=== PATIENT | female | born 1935 | race Caucasian/White ===

== ENCOUNTER 2017-01-26 09:15 | Observation (INO) | payer MEDICARE ==
[2017-01-26] VITALS (8 sets, daily range): BP systolic 116–159; BP diastolic 56–88; PULSE 65–84; RESP 16–20; TEMP 97.8–98.5; O2SAT 95–99
[~2017-01-26] VITALS: Ht 149.9 cm; Wt 48.1 kg
[~2017-01-26 09:15] MED LIST: ADVA250A INH; ALPR-138 PO; AMLO5TAB96 PO; ASPI81 PO; ATOR20TA42 PO; CALC-197 PO; DIGO0.25 PO; FLON0.053; HYDR-2768 PO; HYDR10TA23 PO; K-TA10TA5 PO; LORA10TA7 PO; OMEGCAP2 PO; VENTAER INH
[2017-01-26] MEDS ORDERED: SODIUM CHLORIDE 0.9% FLUSH 10 ML FLUSH IVF PRN (09:30)
--- NOTE | 2017-01-26 09:41 | RADRPT ---
EXAM DATE/TIME: 01/26/2017 09:25 [place] COMPARISON: Report only CHEST SINGLE AP, January 22, 2012, 7:14. INDICATIONS : Chest pain MEDICAL HISTORY : A-fib SURGICAL HISTORY : None. ENCOUNTER: Initial ACUITY: 1 day PAIN SCORE: 4/10 LOCATION: Bilateral chest FINDINGS: No infiltrate, effusion or pneumothorax demonstrated. There is mild cardiomegaly, was reported previo usly. Thoracic aorta is mildly tortuous and there is atherosclerosis at the arch. CONCLUSION: No pneumonia or other acute cardiopulmonary disease demonstrated. Mild compensated cardiomegaly. Andre Pelayo MD on January 26, 2017 at 9:38 Board Certified Radiologist. This report was verified electronically.
[2017-01-26] MEDS ORDERED: DIGO0.25 PO (09:48)
[2017-01-26] MEDS ORDERED: HYDR25TA5 PO ×2 (09:48)
[2017-01-26] MEDS ORDERED: CALC600T10 PO (09:48)
[2017-01-26] MEDS ORDERED: AMLO5TAB2 PO (09:48)
[2017-01-26] MEDS ORDERED: ASPI-110 PO (09:48)
[2017-01-26] MEDS ORDERED: ATOR20TA15 PO (09:48)
[2017-01-26] MEDS ORDERED: POTA20TA5 PO (09:48)
[2017-01-26] MEDS ORDERED: ADVA250A INH (09:48)
[2017-01-26] MEDS ORDERED: LORA10TA PO (09:48)
[2017-01-26] MEDS ORDERED: VENTAER INH (09:48)
--- NOTE | 2017-01-26 10:22 | PD ---
HPI Chief Complaint: Cardiac Complaint Time Seen by Provider: 09:25 Travel History International Travel<30 days: No Contact w/Intl Traveler<30days: No Traveled to known affect area: No History of Present Illness HPI 81-year-old female presents with [facility] transportation for atrial fibrillation with heart rate in the 160s by report. She was given 20 mg of Cardizem IV and her heart rate has now improved. She states when her heart rate was elevated she had chest pain but that has now resolved. 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 She states she took a baby aspirin prior to arrival. She denies any other concurrent complaints. She has known history of atrial fibrillation she states and took her medication at home like she should. Patient is a poor historian [facility] Past Medical History Narrative Medical Per records Arthritis: Yes Asthma: Yes Heart Rhythm Problems: Yes Cancer: No Cardiac Catheterization: No Cardiovascular Problems: Yes (A-FIB ) High Cholesterol: Yes Congestive Heart Failure: No Diabetes: No Diminished Hearing: No Hepatitis: No Hiatal Hernia: No Hypertension: Yes Respiratory: Yes (ASTHMA) Myocardial Infarction: No Pneumonia: Yes Thyroid Disease: No Tetanus Vaccination: > 5 Years Influenza Vaccination: Yes Past Surgical History Narrative Surgical Per records Coronary Artery Bypass Graft: No Gynecologic Surgery: Yes (SURGERY FOR TUBAL ) Hysterectomy: Yes Oral Surgery: Yes (cataract alona ) Pacemaker: No Other Surgery: Yes Family History Family Myocardial Infarction: Yes (MOTHER AND 2 BROTHERS AND SON) Social History Alcohol Use: No Tobacco Use: No Substance Use: No Allergies-Medications (Allergen,Severity, Reaction): Coded Allergies: Lisinopril (Verified Allergy, Severe, Anaphylaxis, 01/26/17) Codeine (Verified Allergy, Mild, NAUSEA, 01/26/17) Reported Meds & Prescriptions Reported Meds & Active Scripts Active Reported Digoxin 0.125 Mg Tab 0.125 Mg PO DAILY Calcium + D3 (Calcium Carbonate-Cholecalciferol) 600-200 Mg-Unit Tab 1 Tab PO BID Advair Diskus Inh (Fluticasone-Salmeterol Inh) 250-50 Mcg/Blist Aer 1 Puff INH BID Rinse mouth after use. Potassium Chloride Microencaps 20 Meq Tab 20 Meq PO DAILY Loratadine 10 Mg Tab 10 Mg PO DAILY Hydrochlorothiazide 25 Mg Tab 25 Mg PO DAILY Amlodipine (Amlodipine Besylate) 5 Mg Tab 5 Mg PO DAILY Atorvastatin (Atorvastatin Calcium) 20 Mg Tab 20 Mg PO HS Ventolin Hfa 18 GM Inh (Albuterol Sulfate) 90 Mcg/Act Aer 1 Puff INH Q4H PRN Aspirin 81 (Aspirin) 81 Mg Tabdr 81 Mg PO DAILY Review of Systems Except as stated in HPI: all other systems reviewed are Neg Physical Exam Narrative GENERAL: Well-nourished, well-developed patient. Well-appearing SKIN: Warm and dry. HEAD: Normocephalic and atraumatic. EYES: No injection or drainage. ENT: No nasal drainage noted. NECK: Supple, trachea midline. CARDIOVASCULAR: irregular rate and rhythm RESPIRATORY: Breath sounds equal bilaterally. No accessory muscle use. GASTROINTESTINAL: Abdomen soft, non-tender, nondistended. NEUROLOGICAL: Awake and alert. Moves all extremities. Normal speech. Data Data Last Documented VS Vital Signs Date Time Temp Pulse Resp B/P Pulse Ox O2 Delivery O2 Flow Rate FiO2 01/26/17 11:15 76 16 138/69 97 Room Air 01/26/17 09:15 98.5 Orders Electrocardiogram (01/26/17 09:28) B-Type Natriuretic Peptide (01/26/17 09:28) Ckmb (Isoenzyme) Profile (01/26/17 09:28) Complete Blood Count With Diff (01/26/17 09:28) Comprehensive Metabolic Panel (01/26/17 09:28) Magnesium (Mg) (01/26/17 09:28) Prothrombin Time / Inr (Pt) (01/26/17 09:28) Act Partial Throm Time (Ptt) (01/26/17 09:28) Troponin I (01/26/17 09:28) Chest, Single Ap (01/26/17 09:28) Ecg Monitoring (01/26/17 09:28) Bilateral Bp Monitoring (01/26/17 09:28) Iv Access Insert/Monitor (01/26/17 09:28) Oximetry (01/26/17 09:28) Sodium Chloride 0.9% Flush (Ns Flush) (01/26/17 09:30) Aspirin (Aspirin) (01/26/17 10:30) Digoxin (01/26/17 11:04) Consult Cardiology (01/26/17 ) Admit Order (Ed Use Only) (01/26/17 11:58) Labs Laboratory Tests Test 01/26/17 09:35 White Blood Count 5.5 TH/MM3 Red Blood Count 5.27 MIL/MM3 Hemoglobin 15.3 GM/DL Hematocrit 45.8 % Mean Corpuscular Volume 86.8 FL Mean Corpuscular Hemoglobin 29.1 PG Mean Corpuscular Hemoglobin 33.5 % Concent Red Cell Distribution Width 13.3 % Platelet Count 169 TH/MM3 Mean Platelet Volume 9.5 FL Neutrophils (%) (Auto) 77.5 % Lymphocytes (%) (Auto) 16.4 % Monocytes (%) (Auto) 5.0 % Eosinophils (%) (Auto) 0.5 % Basophils (%) (Auto) 0.6 % Neutrophils # (Auto) 4.2 TH/MM3 Lymphocytes # (Auto) 0.9 TH/MM3 Monocytes # (Auto) 0.3 TH/MM3 Eosinophils # (Auto) 0.0 TH/MM3 Basophils # (Auto) 0.0 TH/MM3 CBC Comment DIFF FINAL Differential Comment Prothrombin Time 11.3 SEC Prothromb Time International 1.0 RATIO Ratio Activated Partial 25.0 SEC Thromboplast Time Sodium Level 141 MEQ/L Potassium Level 4.2 MEQ/L Chloride Level 105 MEQ/L Carbon Dioxide Level 23.6 MEQ/L Anion Gap 12 MEQ/L Blood Urea Nitrogen 13 MG/DL Creatinine 1.07 MG/DL Estimat Glomerular Filtration 49 ML/MIN Rate Random Glucose 157 MG/DL Calcium Level 9.1 MG/DL Magnesium Level 2.2 MG/DL Total Bilirubin 1.1 MG/DL Aspartate Amino Transf 36 U/L (AST/SGOT) Alanine Aminotransferase 31 U/L (ALT/SGPT) Alkaline Phosphatase 106 U/L Total Creatine Kinase 65 U/L Troponin I 0.03 NG/ML B-Type Natriuretic Peptide 225 PG/ML Total Protein 7.8 GM/DL Albumin 4.0 GM/DL Digoxin Level 0.1 NG/ML MDM Medical Decision Making Medical Screen Exam Complete: Yes Emergency Medical Condition: Yes Medical Record Reviewed: Yes (past history confirm) Interpretation(s) EKG appears irregular but there is a P before each QRS complex in lead 2 that has more appearance of sinus rhythm with PACs no obvious STEMI criteria CBC & BMP Diagram 01/26/17 09:35 Last 24 hours Impressions Chest X-Ray 01/26/17 0928 Signed Impressions: Service Date/Time: January 09:25 - CONCLUSION: No pneumonia or other acute cardiopulmonary disease demonstrated. Mild compensated cardiomegaly. Andre Pelayo MD Differential Diagnosis Atrial fibrillation with RVR, a flutter, SVT with aberrancy, CA.... Narrative Course Will check blood work, chest x-ray, EKG and monitor. Heart rate now controlled if it increases Will place on Cardizem drip Patient now in sinus rhythm. Pain has resolved after rate control. We'll discuss with cardiology Patient agrees to admission Physician Communication Physician Communication dr alas states to place in observation and will see dr ness agrees to observation Diagnosis Primary Impression: Chest pain Qualified Code: R07.9 - Chest pain, unspecified type Additional Impression: Tachycardia Admitting Information Admitting Physician Requests: Observation Hallie Molina MD January 26, 2017 10:22
[2017-01-26 10:23] LABS: AUTOMATED NEUTROPHIL # 4.2 TH/MM3 (1.8-7.7); BASOPHIL % 0.6 % (0.0-2.0); EOSINOPHIL % 0.5 % (0.0-4.0); HEMATOCRIT 45.8 % (35.0-46.0); HEMO FLAGS DIFF FINAL; LYMPH % 16.4 % (9.0-44.0); LYMPHOCYTE # 0.9 TH/MM3 (1.0-4.8); MEAN CELL VOLUME 86.8 FL (80.0-100.0); MEAN CORPUSCULAR HEMOGLOBIN 29.1 PG (27.0-34.0); MEAN CORPUSCULAR HGB CONC 33.5 % (32.0-36.0); NEUT % 77.5 % (16.0-70.0); PLATELET COUNT 169 TH/MM3 (150-450); RED BLOOD COUNT 5.27 MIL/MM3 (4.00-5.30); RED CELL DISTRIBUTION WIDTH 13.3 % (11.6-17.2); WHITE BLOOD COUNT 5.5 TH/MM3 (4.0-11.0)
[2017-01-26] MEDS ORDERED: ASPIRIN 325 MG TAB PO ONE (10:30)
[2017-01-26 10:37] LABS: PROTHROMBIN TIME - PATIENT 11.3 SEC (9.8-11.6)
[2017-01-26 10:40] LABS: ALKALINE PHOSPHATASE 106 U/L (45-117); ALT (GPT) 31 U/L (10-53); ANION GAP 12 MEQ/L (5-15); AST (GOT) 36 U/L (15-37); BICARBONATE 23.6 MEQ/L (21.0-32.0); BLOOD UREA NITROGEN 13 MG/DL (7-18); CHLORIDE 105 MEQ/L (98-107); GLOMERULAR FILTRATION RATE 49 ML/MIN (>89); MAGNESIUM 2.2 MG/DL (1.5-2.5); POTASSIUM 4.2 MEQ/L (3.5-5.1); SODIUM (NA) 141 MEQ/L (136-145); TOTAL BILIRUBIN ADULT 1.1 MG/DL (0.2-1.0)
[2017-01-26 10:43] LABS: CREATINE KINASE 65 U/L (26-192)
[2017-01-26] MEDS ORDERED: DIGO0.12 PO (12:13)
[2017-01-26] MEDS ORDERED: ONDANSETRON HCL 4 MG/2 ML VIAL IV PRN (12:15)
[2017-01-26] MEDS ORDERED: ACETAMINOPHEN 325 MG TAB PO PRN (12:15)
[2017-01-26] MEDS ORDERED: SODIUM CHLORIDE 0.9% FLUSH 10 ML FLUSH IV FLUSH PRN (12:15)
[2017-01-26] MEDS ORDERED: ALBUTEROL SULFATE 90 MCG/ACT HFA 18 GM INHALER INH PRN (12:30)
--- NOTE | 2017-01-26 13:18 | MB ---
cc: YVAN BOJORQUEZ DATE OF CONSULTATION 01/26/2017 INDICATION Chest pain and atrial fibrillation. HISTORY OF PRESENT ILLNESS This a very nice 81-year-old female. She follows with me in the outpatient setting. I last saw her back in August 2016. She was seen to be doing fairly well at that time. She has a prior history of cardiomyopathy probably nonischemic which has improved with rate control strategy. She also has a history of chronic kidney disease, hyperlipidemia, paroxysmal atrial fibrillation. She had been on Cardizem and digoxin according to our last office records, but those must have been changed as she is now on hydrochlorothiazide and amlodipine. She states that yesterday she developed chest pain sort of a band-like sensation across her entire chest. She was noted also to feel palpitations. Eventually EMS was called this morning after she had symptoms all day yesterday. According to the records, her heart rate was as high as 160 beats per minute. She was given IV Cardizem and heart rate improved. She is now currently sinus rhythm with frequent premature atrial complexes. She is completely asymptomatic. PAST MEDICAL HISTORY As mentioned above includin. Atrial fibrillation 2. Asthma 3. Hypertension 4. Hyperlipidemia 5. Chronic kidney disease 6. Hypertensive heart disease 7. Pulmonary hypertension 8. Prior cardiomyopathy now resolved on most recent echocardiogram October 2015 pain. FAMILY HISTORY Denies any family history of early coronary disease or sudden cardiac . SOCIAL HISTORY Denies any alcohol, tobacco or drug use. ALLERGIES LISINOPRIL AND CODEINE MEDICATIONS 1. Calcium 2. Digoxin 3. Advair 4. Potassium 5. Hydrochlorothiazide 6. Loratadine 7. Amlodipine 8. Atorvastatin 9. Ventolin 10. Aspirin REVIEW OF SYSTEMS A 12-point review of some was performed and is negative unless otherwise as noted in the history of present illness. PHYSICAL EXAMINATION Temperature is 98, pulse 78, blood pressures 138/69 mmHg. GENERAL: Alert and oriented x3 in no acute distress. HEENT: Exam shows pupils reactive to light and accommodation. Extraocular movements are intact. No elevation of jugular venous distension. No thyromegaly or lymphadenopathy. No carotid bruits. LUNGS: Clear auscultation bilaterally. CARDIOVASCULAR: Regular rate and rhythm without murmurs, rubs or gallops. ABDOMEN: Nontender. Good bowel sounds. No hepatosplenomegaly. EXTREMITIES: Shows no clubbing, cyanosis or edema. Good peripheral pulses. NEUROLOGIC: Cranial nerves intact. Motor and sensory grossly intact. LABORATORY DATA WBC 5.5, hemoglobin 15.2, platelet count 169, INR is 1. Sodium 141, potassium 4.2, BUN 13, creatinine is 1.0, BNP is 225, troponin 0.03. Electrocardiogram upon arrival sinus rhythm with frequent PACs. Possible inferior infarct pattern, incomplete left bundle-branch block. ASSESSMENT 1. Atypical chest pain. 2. Atrial fibrillation with rapid ventricular rate. PLAN It seems as if her symptoms were related primarily to the tachycardia which suggests demand mediated ischemia. Heart rate was as high as 160 beats per minute. Now that her heart rate is well controlled and she is back into sinus rhythm after IV Cardizem, she is asymptomatic. She is on digoxin. Dig level was on the low end, but I am not sure she has been compliant with that because her dose is 0.25 mg. She has normal renal function but her creatinine is also borderline to mildly elevated and given her petite stature, I would probably decrease her down to 0.125 mg for risk of toxicity. I am going to DC the hydrochlorothiazide which is probably worsening her renal function and also hold the amlodipine and lets try to get her back on Cardizem for rate control strategy. At this point, I do not feel strongly we need to do an ischemic workup. She is on aspirin 325 a day. She does have some baseline dementia. I am not sure she is a very good anticoagulation candidate for consideration. If all goes well today, then she will go home tomorrow. MD ZOILA Kingsley/RANGEL /12:49 PM /12:57 PM
[2017-01-26] MEDS: DIGOXIN 0.125 MG TAB PO SCH (14:05)
[2017-01-26] MEDS: DILTIAZEM HCL 30 MG TAB PO SCH ×3 (14:05→20:34)
--- NOTE | 2017-01-26 16:35 | HHI.HP ---
HPI Service [facility] Hospitalists Primary Care Physician Dave Tellez MD Admission Diagnosis chest pain, tachycardia Chief Complaint: cp Travel History International Travel<30 Days: No Contact w/Intl Traveler <30 Da: No Traveled to Known Affected Are: No History of Present Illness Pt is 81 yo with afib and past hx cardiomyopathy.l Presented via EMS for chest tightness and tachycardia. HR in 160s and given iv cardizem. Medicatilon compliance is in question. Neighbor tells me pt and sister fight over taking the meds. Pt has cognitive deficits and would appear to show signs of dementia. The cp resolved with rate control. She is comfortable on my visit. 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 Review of Systems Other cp Past Family Social History Past Medical History hx cardiomyopathy. resolved htn afib asthma hyperlipidemia mild dementia Reported Medications Digoxin 0.125 Mg Tab 0.125 Mg PO DAILY Calcium + D3 (Calcium Carbonate-Cholecalciferol) 600-200 Mg-Unit Tab 1 Tab PO BID Advair Diskus Inh (Fluticasone-Salmeterol Inh) 250-50 Mcg/Blist Aer 1 Puff INH BID Rinse mouth after use. Potassium Chloride Microencaps 20 Meq Tab 20 Meq PO DAILY Loratadine 10 Mg Tab 10 Mg PO DAILY Hydrochlorothiazide 25 Mg Tab 25 Mg PO DAILY Amlodipine (Amlodipine Besylate) 5 Mg Tab 5 Mg PO DAILY Atorvastatin (Atorvastatin Calcium) 20 Mg Tab 20 Mg PO HS Ventolin Hfa 18 GM Inh (Albuterol Sulfate) 90 Mcg/Act Aer 1 Puff INH Q4H PRN Aspirin 81 (Aspirin) 81 Mg Tabdr 81 Mg PO DAILY Allergies: Coded Allergies: Lisinopril (Verified Allergy, Severe, Anaphylaxis, 01/26/17) Codeine (Verified Allergy, Mild, NAUSEA, 01/26/17) Family History nc Social History no etoh/tob Physical Exam Vital Signs mild cognitive impairment pleasant. follows commands heart mostly reg. intermittently irreg lung cta abd s/nt ext no edema Vital Signs Date Time Temp Pulse Resp B/P Pulse Ox O2 Delivery O2 Flow Rate FiO2 01/26/17 16:00 97.8 74 20 117/68 99 01/26/17 14:00 84 16 159/67 99 Room Air 01/26/17 12:30 82 16 143/83 98 Room Air 01/26/17 11:15 76 16 138/69 97 Room Air 01/26/17 10:15 78 16 142/67 97 Room Air 01/26/17 09:15 72 20 152/88 98 Room Air 01/26/17 09:15 84 20 98 Room Air 01/26/17 09:15 98.5 78 20 152/88 98 Laboratory Laboratory Tests Test 01/26/17 01/26/17 09:35 14:39 White Blood Count 5.5 Red Blood Count 5.27 Hemoglobin 15.3 Hematocrit 45.8 Mean Corpuscular Volume 86.8 Mean Corpuscular Hemoglobin 29.1 Mean Corpuscular Hemoglobin 33.5 Concent Red Cell Distribution Width 13.3 Platelet Count 169 Mean Platelet Volume 9.5 Neutrophils (%) (Auto) 77.5 Lymphocytes (%) (Auto) 16.4 Monocytes (%) (Auto) 5.0 Eosinophils (%) (Auto) 0.5 Basophils (%) (Auto) 0.6 Neutrophils # (Auto) 4.2 Lymphocytes # (Auto) 0.9 Monocytes # (Auto) 0.3 Eosinophils # (Auto) 0.0 Basophils # (Auto) 0.0 CBC Comment DIFF FINAL Differential Comment Prothrombin Time 11.3 Prothromb Time International 1.0 Ratio Activated Partial 25.0 Thromboplast Time Sodium Level 141 Potassium Level 4.2 Chloride Level 105 Carbon Dioxide Level 23.6 Anion Gap 12 Blood Urea Nitrogen 13 Creatinine 1.07 Estimat Glomerular Filtration 49 Rate Random Glucose 157 Calcium Level 9.1 Magnesium Level 2.2 Total Bilirubin 1.1 Aspartate Amino Transf 36 (AST/SGOT) Alanine Aminotransferase 31 (ALT/SGPT) Alkaline Phosphatase 106 Total Creatine Kinase 65 70 Troponin I 0.03 0.43 B-Type Natriuretic Peptide 225 Total Protein 7.8 Albumin 4.0 Digoxin Level 0.1 Result Diagram: 01/26/1735 01/26/17 0935 Assessment and Plan Problem List: (1) Atrial fibrillation with RVR Status: Acute Plan: Pt is 81 yo presents with chest tightness and afib/rvr has some mild dementia compliance with meds is in question. neighbor pulled me aside to let me know pt and sister argue and pt refuses often to take the meds elevated trop. felt to be demand from tachycardia renal function noted. might be worsened by diuretic. stop hctz and recheck cr in AM. dr Cunningham following dig and diltiazem started. asa only poor anticoagulation candidate If HR controlled then plan for d/c home tomorrow will consult [facility] to check med compliance. also will notify [facility] complex CM. (2) Chest pain Status: Acute Plan: see above (3) Asthma Status: Chronic Plan: home meds (4) HTN (hypertension) Status: Chronic Plan: see above Problem Qualifiers (1) Chest pain: Qualified Code: R07.9 - Chest pain, unspecified type Shayan Marie MD January 26, 2017 16:35
[2017-01-26] MEDS ORDERED: SODIUM CHLORID 0.9% 500 ML INJ 500 ML IV SCH (18:00)
--- NOTE | 2017-01-26 18:24 | EKG ---
Date Performed: 01/26/2017 Time Performed: 09:29:49 PTAGE: 81 years EKG: Sinus rhythm WITH FREQUENT SUPRAVENTRICULAR PREMATURE COMPLEXES MARKED LEFT AXIS DEVIATION POSSIBLE ANTERIOR MYOC ARDIAL INFARCTION MODERATE T-WAVE ABNORMALITY, CONSIDER LATERAL ISCHEMIA ABNORMAL ECG Compared to selina or tracing no significant change PREVIOUS TRACING : 01/26/2017 09.28 DOCTOR: Monty Cotto Interpretating Date/Time 01/26/2017 18:22:41
[2017-01-26] MEDS: SODIUM CHLORIDE 0.9% FLUSH 10 ML FLUSH IV FLUSH SCH (20:34)
[2017-01-26] MEDS ORDERED: ATORVASTATIN 20 MG TAB PO SCH (21:00)
[2017-01-26] MEDS: BUDESONIDE-FORMOTEROL 160/4.5 MCG INHALER INH SCH (21:04)
[2017-01-27] VITALS: BP 144/65; PULSE 67; RESP 16; TEMP 98.9; O2SAT 96
[2017-01-27 04:00] VITALS: BP 133/82; PULSE 92; RESP 16; TEMP 98.4; O2SAT 93
[2017-01-27 08:00] VITALS: BP 162/79; PULSE 73; RESP 20; TEMP 98.1; O2SAT 97
--- NOTE | 2017-01-27 08:23 | PD.CARD.PN ---
Subjective Subjective Remarks denies chest pain or palpitations Objective Vital Signs / I&O Vital Signs Date Time Temp Pulse Resp B/P Pulse Ox O2 Delivery O2 Flow Rate FiO2 01/27/17 04:00 98.4 92 16 133/82 93 01/27/17 00:00 98.9 67 16 144/65 96 01/26/17 20:15 Room Air 01/26/17 20:00 70 01/26/17 20:00 98.2 65 18 116/56 95 01/26/17 16:00 97.8 74 20 117/68 99 01/26/17 15:24 77 01/26/17 14:00 84 16 159/67 99 Room Air 01/26/17 12:30 82 16 143/83 98 Room Air 01/26/17 11:15 76 16 138/69 97 Room Air 01/26/17 10:15 78 16 142/67 97 Room Air 01/26/17 09:15 72 20 152/88 98 Room Air 01/26/17 09:15 84 20 98 Room Air 01/26/17 09:15 98.5 78 20 152/88 98 I/O 01/26/17 01/26/17 01/26/17 01/27/17 01/27/17 01/27/17 07:00 15:00 23:00 07:00 15:00 23:00 Intake Total 120 ml Balance 120 ml Intake Oral 120 ml # Voids 1 # Bowel Movements 0 Physical Exam GENERAL: Well-nourished, well-developed patient in no apparent distress. NECK: No JVD. No carotid bruit. CARDIOVASCULAR: Regular rate and rhythm. S1/S2 no murmur, rub, or gallop. RESPIRATORY: No accessory muscle use. Clear to auscultation. Breath sounds equal bilaterally. GASTROINTESTINAL: Abdomen soft, non-tender, nondistended. MUSCULOSKELETAL: Extremities without clubbing, cyanosis, or edema. Laboratory Laboratory Tests Test 01/26/17 01/26/17 01/26/17 09:35 14:39 21:45 White Blood Count 5.5 TH/MM3 Red Blood Count 5.27 MIL/MM3 Hemoglobin 15.3 GM/DL Hematocrit 45.8 % Mean Corpuscular Volume 86.8 FL Mean Corpuscular Hemoglobin 29.1 PG Mean Corpuscular Hemoglobin 33.5 % Concent Red Cell Distribution Width 13.3 % Platelet Count 169 TH/MM3 Mean Platelet Volume 9.5 FL Neutrophils (%) (Auto) 77.5 % Lymphocytes (%) (Auto) 16.4 % Monocytes (%) (Auto) 5.0 % Eosinophils (%) (Auto) 0.5 % Basophils (%) (Auto) 0.6 % Neutrophils # (Auto) 4.2 TH/MM3 Lymphocytes # (Auto) 0.9 TH/MM3 Monocytes # (Auto) 0.3 TH/MM3 Eosinophils # (Auto) 0.0 TH/MM3 Basophils # (Auto) 0.0 TH/MM3 CBC Comment DIFF FINAL Differential Comment Prothrombin Time 11.3 SEC Prothromb Time International 1.0 RATIO Ratio Activated Partial 25.0 SEC Thromboplast Time Sodium Level 141 MEQ/L Potassium Level 4.2 MEQ/L Chloride Level 105 MEQ/L Carbon Dioxide Level 23.6 MEQ/L Anion Gap 12 MEQ/L Blood Urea Nitrogen 13 MG/DL Creatinine 1.07 MG/DL Estimat Glomerular Filtration 49 ML/MIN Rate Random Glucose 157 MG/DL Calcium Level 9.1 MG/DL Magnesium Level 2.2 MG/DL Total Bilirubin 1.1 MG/DL Aspartate Amino Transf 36 U/L (AST/SGOT) Alanine Aminotransferase 31 U/L (ALT/SGPT) Alkaline Phosphatase 106 U/L Total Creatine Kinase 65 U/L 70 U/L 96 U/L Troponin I 0.03 NG/ML 0.43 NG/ML 0.37 NG/ML B-Type Natriuretic Peptide 225 PG/ML Total Protein 7.8 GM/DL Albumin 4.0 GM/DL Digoxin Level 0.1 NG/ML Assessment and Plan Problem List: (1) Atrial fibrillation with RVR (2) Chest pain Assessment and Plan remains in SR. She will be converted to diltiazem CD 120 mg daily and continue digoxin 125 mcg daily. Sign off, okay to d/c home from CV standpoint Problem Qualifiers (1) Chest pain: Qualified Code: R07.9 - Chest pain, unspecified type Mir Tay January 27, 2017 08:23
[2017-01-27 08:54] VITALS: PULSE 77
[2017-01-27] MEDS ORDERED: DILTIAZEM-CD 120 MG CAP ER PO SCH (09:00)
[2017-01-27] MEDS ORDERED: LORATADINE 10 MG TAB PO SCH (09:00)
[2017-01-27] MEDS ORDERED: DIGOXIN 0.125 MG TAB PO SCH (09:00)
[2017-01-27] MEDS ORDERED: ASPIRIN EC 81 MG TABEC PO SCH (09:00)
[2017-01-27] MEDS ORDERED: amLODIPine BESYLATE 5 MG TAB PO SCH (09:00)
[2017-01-27] MEDS ORDERED: ASPIRIN EC 325 MG TABEC PO SCH (09:00)
[2017-01-27 09:22] LABS: BICARBONATE 29.4 MEQ/L (21.0-32.0); POTASSIUM 3.3 MEQ/L (3.5-5.1)
[2017-01-27] MEDS ORDERED: POTASSIUM CHLORIDE 20 MEQ CONTROLLED RELEASE TAB PO ONE (09:30)
--- NOTE | 2017-01-27 10:03 | HHI.PR ---
Subjective Remarks PT EAGER FOR D/C Objective Vitals HEART REG LUNG CTA ABD S/NT EXT NO EDEMA Vital Signs Date Time Temp Pulse Resp B/P Pulse Ox O2 Delivery O2 Flow Rate FiO2 01/27/17 08:54 77 01/27/17 08:00 98.1 73 20 162/79 97 01/27/17 04:00 98.4 92 16 133/82 93 01/27/17 00:00 98.9 67 16 144/65 96 01/26/17 20:15 Room Air 01/26/17 20:00 70 01/26/17 20:00 98.2 65 18 116/56 95 01/26/17 16:00 97.8 74 20 117/68 99 01/26/17 15:24 77 01/26/17 14:00 84 16 159/67 99 Room Air 01/26/17 12:30 82 16 143/83 98 Room Air 01/26/17 11:15 76 16 138/69 97 Room Air 01/26/17 10:15 78 16 142/67 97 Room Air 01/26/17 01/26/17 01/27/17 15:00 23:00 07:00 Intake Total 120 ml Balance 120 ml Intake Oral 120 ml # Voids 1 # Bowel Movements 0 Result Diagram: 01/26/17 0935 01/27/17 0739 A/P Problem List: (1) Atrial fibrillation with RVR Status: Acute Plan: Pt is 81 yo presents with chest tightness and afib/rvr has some mild dementia compliance with meds is in question. neighbor pulled me aside to let me know pt and sister argue and pt refuses often to take the meds elevated trop. felt to be demand from tachycardia renal function noted. might be worsened by diuretic. stop hctz dr Cunningham following. discussed. will f/u d/c on dig and cardizem stop hctz and norvasc [facility] eval for med compliance and education. asa only poor anticoagulation candidate (2) Chest pain Status: Acute Plan: see above (3) Asthma Status: Chronic Plan: home meds (4) HTN (hypertension) Status: Chronic Plan: see above Problem Qualifiers (1) Chest pain: Qualified Code: R07.9 - Chest pain, unspecified type Shayan Marie MD January 27, 2017 10:03
[2017-01-27] MEDS ORDERED: CARD120C4 PO (10:04)
[2017-01-27] MEDS ORDERED: DIGO0.12 PO (10:04)
--- NOTE | 2017-01-27 10:05 | HHI.DCPOC ---
Discharge Care Plan Diagnosis: (1) Atrial fibrillation with RVR Goals to Promote Your Health * To prevent worsening of your condition and complications * To maintain your health at the optimal level Directions to Meet Your Goals Take your medications as prescribed Follow your dietary instruction Follow activity as directed Keep your appointments as scheduled Take your immunizations and boosters as scheduled If your symptoms worsen call your PCP, if no PCP go to Urgent Care Center or Emergency Room Smoking is Dangerous to Your Health. Avoid second hand smoke Call the 24-hour hour crisis hotline for domestic abuse at Shayan Marie MD January 27, 2017 10:05
--- NOTE | 2017-01-27 10:06 | HHI.FF ---
Face to Face Verification Diagnosis: (1) Atrial fibrillation with RVR Physical Therapy Order: Evaluate and Treat Home Health Nursing Order: Medical education Signs/symptoms of disease process Medication education-adverse effect Nursing assessment with vital signs Instructions: monitor for adverse side effects of digoxin and cardizem for her afib. medicine compliance in question as pt has some cognitive/dementia issues. I have seen patient Grisel Galan on 01/27/17. My clinical findings support the need for the requested home health care services because: Med compliance is questionable I certify that my clinical findings support that this patient is homebound because: Poor cardiac reserve Shayan Marie MD January 27, 2017 10:06
[2017-01-27] MEDS: DIGOXIN 0.125 MG TAB PO SCH (10:11)
[2017-01-27] MEDS: BUDESONIDE-FORMOTEROL 160/4.5 MCG INHALER INH SCH (10:12)
[2017-01-27] MEDS: SODIUM CHLORIDE 0.9% FLUSH 10 ML FLUSH IV FLUSH SCH (10:14)
[2017-01-27 12:00] VITALS: BP 182/79; PULSE 92; RESP 22; TEMP 97.5; O2SAT 96
[2017-01-27 13:13] VITALS: BP 159/77; PULSE 78
== END 2017-01-27 14:40 | disposition home health service (06) ==
LOC: NEPC 09:15 → NEDA 12:00 → N04A 15:20
PROVIDERS: ADMIT Hospitalist; ATTEND Hospitalist
DX: I48.0 Paroxysmal atrial fibrillation (principal); R07.89 Other chest pain; J45.909 Unspecified asthma, uncomplicated; M19.90 Unspecified osteoarthritis, unspecified site; E78.00 Pure hypercholesterolemia, unspecified; F03.90 Unspecified dementia, unspecified severity, without behavioral disturbance, psychotic disturbance, mood disturbance, and anxiety; I42.9 Cardiomyopathy, unspecified; I13.10 Hypertensive heart and chronic kidney disease without heart failure, with stage 1 through stage 4 chronic kidney disease, or unspecified chronic kidney disease; N18.9 Chronic kidney disease, unspecified; E78.5 Hyperlipidemia, unspecified; Z88.5 Allergy status to narcotic agent; Z88.8 Allergy status to other drugs, medicaments and biological substances; Z79.82 Long term (current) use of aspirin
CPT/HCPCS: 71010; 80048; 80053; 80162; 82550; 83735; 83880; 84484; 85025; 85610; 85730; 93005; 99285; G0378